=== PATIENT | male | born 1970 | race African-American/Black ===

== ENCOUNTER 2016-08-26 23:28 | Emergency (ER) | payer MEDICAID, OTHER ==
[~2016-08-26] VITALS: Ht 170.2 cm; Wt 77.1 kg
[2016-08-27] MEDS ORDERED: KETOROLAC TROMETH 60MG/2ML VIAL IM ONE (02:00)
[2016-08-27] MEDS ORDERED: BACITRACIN-POLYMYXIN B TOPICAL OINT UD TOP ONE (02:46)
[2016-08-27 05:38] LABS: Urine RBC None Seen /hpf (0 - 3)
[2016-08-27 05:51] LABS: Urine Bilirubin Negative (Negative); Urine Blood 1+ /uL (Negative); Urine Color Yellow (Yellow); Urine Glucose Normal (Normal); Urine Ketone Negative (Negative); Urine Mucus FEW (None Seen); Urine Nitrite Negative (Negative); Urine Urobilinogen Normal (Negative); Urine pH 5.5 (5.0-8.0)
[2016-08-27 06:29] VITALS: BP 123/73
== END 2016-08-27 06:36 | disposition home or self-care (01) ==
LOC: ER 23:28
DX: S51.012A Laceration without foreign body of left elbow, initial encounter (principal); M25.511 Pain in right shoulder; M25.562 Pain in left knee; R51 Headache; M54.2 Cervicalgia; M79.1 Myalgia; Y04.8XXA Assault by other bodily force, initial encounter; Y93.89 Activity, other specified; Y99.8 Other external cause status; Y92.512 Supermarket, store or market as the place of occurrence of the external cause
CPT/HCPCS: 36415; 70450; 71010; 72125; 72131; 73020; 73070; 73562; 73620; 74176; 80074; 81001; 93005; 96372; 99285; J1885